=== PATIENT | male | born 1965 | race Caucasian/White ===

== ENCOUNTER 2018-11-12 18:39 | Emergency (ER) | payer BC, OTHER ==
[~2018-11-12] VITALS: Ht 200.7 cm; Wt 127.3 kg
--- NOTE | 2018-11-12 18:57 | NUR ---
JOVANNA THURMAN BS FOR EXAM. PT REPORTS SOB STARTED LAST NOC. "FELT LIKE I NEEDED MORE OXYGEN" USED 'S INHALER EARLIER TODAY. PT A&OX4, RESP EVEN & UNLABORED, ABLE TO SPEAK IN COMPLETE SENTENCES, SKIN WNL. SPOUSE IN ROOM
--- NOTE | 2018-11-12 19:21 | NUR ---
Note jackyone in EDM - 11/12/18 at 1923 by VINAYAK SITTING QUIETLY ON BED. RT HAND & KNEE WRAPPED W/ GAUZE. RT FINGER LAC BLEEDING; WILL REDRESS WOUND. PT REFUSES TO NOTIFY SON OF HIS PRESENCE IN ED. STATES HE NEEDS "TO GET BACK TO MY CAR; [facility]'S [facility]".
[2018-11-12 19:24] LABS: BASOPHILS # (AUTO) 0.06 x10^3/uL (0-0.1); BASOPHILS % (AUTO) 1 % (0-1); EOSINOPHILS # (AUTO) 0.34 x10^3/uL (0-0.4); EOSINOPHILS % (AUTO) 5 % (1-7); LYMPHOCYTES # (AUTO) 2.81 x10^3/uL (1-3.4); LYMPHOCYTES % (AUTO) 42 % (22-44); MD NO; MEAN CORPUSCULAR HEMOGLOBIN 31.6 pg (27.5-34.5); MEAN CORPUSCULAR HGB CONC 34.2 g/dL (33.2-36.2); MEAN CORPUSCULAR VOLUME 92.5 fL (81-97); MEAN PLATELET VOLUME 8.5 fL (7.4-10.4); MONOCYTES # (AUTO) 0.69 x10^3/uL (0.2-0.8); MONOCYTES % (AUTO) 10 % (2-9); NEUTROPHILS # (AUTO) 2.81 x10^3/uL (1.8-6.8); NEUTROPHILS % (AUTO) 42 % (42-75); PLATELET COUNT 244 x10^3/uL (130-400); RED BLOOD COUNT 4.48 x10^6/uL (4.38-5.82); RED CELL DISTRIBUTION WIDTH 12.8 % (9.4-14.8)
[2018-11-12 19:33] LABS: ALANINE AMINOTRANSFERASE 51 U/L (12-78); ANION GAP 5 mmol/L (5-15); CALCIUM 8.8 mg/dL (8.5-10.1); CHLORIDE 109 mmol/L (98-107); CREATININE 1.07 mg/dL (0.7-1.3)
[2018-11-12] MEDS ORDERED: HTN MED ×2 (19:33)
[2018-11-12] MEDS ORDERED: OMEP40CA6 PO (19:34)
[2018-11-12] MEDS ORDERED: AMLO-150 PO (19:36)
[2018-11-12] MEDS ORDERED: ENAL20TA PO (19:36)
[2018-11-12 19:37] LABS: ALKALINE PHOSPHATASE 45 U/L (45-117); BILIRUBIN,TOTAL 0.4 mg/dL (0.2-1.0); TOTAL PROTEIN 7.3 g/dL (6.4-8.2); TROPONIN I < 0.015 ng/mL (0.000-0.045)
[2018-11-12 19:42] VITALS: BP 113/70
== END 2018-11-12 21:05 | disposition home or self-care (01) ==
LOC: ED 20:39
DX: R07.89 Other chest pain (principal); I10 Essential (primary) hypertension
CPT/HCPCS: 36415; 71045; 80053; 84484; 85025; 93005; 99284